=== PATIENT | male | born 1960 | race Caucasian/White ===

== ENCOUNTER → 2018-01-29 | Outpatient (CLI) | payer BC ==
[~2018-01-29] MED LIST: DIOVAN HCT 80-1 EACH PO; FENOFIBRATE145 MG PO; JANUVIA100 MG PO; NORCO 10-325 T1 EACH PO; RAPAFLO8 MG PO; ZETIA10 MG PO
--- NOTE | 2018-01-29 11:17 | Diagnostic Imaging Report ---
PROCEDURE:X-RAY ABDOMEN - KUB COMPARISON:Abdomen one view 07/24/2017. INDICATIONS:CALCULUS OF THE KIDNEY FINDINGS: There is a non-obstructed bowel-gas pattern. 3.6 mm calculus projects over the superior pole the right kidney. Two separate calculi project over the superior pole of the left kidney, the largest measuring 2.7 mm. There are no calcifications projected over the expected course of the ureters or bladder. Metallic objects project over the right midabdomen, correlate with surgical history. There are no acute osseous abnormalities. The lung bases are clear. CONCLUSION: Bilateral nephrolithiasis. Dictated by: Jose Cruz Rawls M.D. on 01/29/2018 at 11:17 Electronically approved by: Jose Cruz Rawls M.D. on 01/29/2018 at 11:17
== END | disposition home or self-care (01) ==
LOC: RAD 09:31
PROVIDERS: ATTEND Urology
DX: N20.0 Calculus of kidney (principal)
CPT/HCPCS: 74018

== ENCOUNTER → 2018-04-16 | Outpatient (CLI) | payer BC ==
--- NOTE | 2018-04-16 09:52 | Diagnostic Imaging Report ---
PROCEDURE:X-RAY ABDOMEN - KUB COMPARISON:Patients [facility], DX, ABDOMEN-1VIEW (KUB), 01/29/2018, 10:37. INDICATIONS:KIDNEY STONE FOLLOW UP FINDINGS: There are small stones overlying the upper pole of both kidneys appearing unchanged in size or position compared to the most recent plain film of the abdomen. There are no dilated loops of bowel to suggest obstruction. There are no masses. Barium or calcification within loops of bowel overlie the iliac crests bilaterally. Left pelvic phlebolith is stable. There is no evidence of free air. No acute osseous abnormalities are present. CONCLUSION: Small bilateral renal stones. Aureliano Vance D.O. Dictated by: Aureliano Vance D.O. on 04/16/2018 at 9:56 Electronically approved by: Aureliano Vance D.O. on 04/16/2018 at 9:56
== END ==
LOC: RAD 08:30
PROVIDERS: ATTEND Urology
DX: N20.0 Calculus of kidney (principal)
CPT/HCPCS: 74018

== ENCOUNTER → 2018-07-17 | Outpatient (CLI) | payer BC ==
--- NOTE | 2018-07-17 09:06 | Diagnostic Imaging Report ---
PROCEDURE:X-RAY ABDOMEN - KUB COMPARISON:Patients [facility], DX, ABDOMEN-1VIEW (KUB), 04/16/2018, 8:34. INDICATIONS:CALCULUS OF THE KIDNEY FINDINGS: No change in the size or location of previously described upper pole stones with a single one on the right side and two on the left side. Left pelvic calcifications compatible with phleboliths. There are no dilated loops of bowel to suggest obstruction. There are no masses. There is no evidence of free air. No acute osseous abnormalities are present. CONCLUSION: 1. No acute abdominal abnormality. 2. Small bilateral upper pole renal stones unchanged. Aureliano Vance D.O. Dictated by: Aureliano Vance D.O. on 07/17/2018 at 9:14 Electronically approved by: Aureliano Vance D.O. on 07/17/2018 at 9:14
== END ==
LOC: RAD 08:14
PROVIDERS: ATTEND Urology
DX: N20.0 Calculus of kidney (principal)
CPT/HCPCS: 74018

== ENCOUNTER → 2018-12-31 | Outpatient (CLI) | payer BC ==
--- NOTE | 2018-12-31 11:42 | Diagnostic Imaging Report ---
EXAM: ABDOMEN-1VIEW (KUB) DATE: 12/31/2018 9:25 AM INDICATION: Kidney stone COMPARISON: None FINDINGS: 2 supine views of the abdomen show a normal distribution of air in the small and large bowel. There is a 4 mm calcification projected on the upper portion of the right kidney and a 4 mm calcification projected on the upper portion of the left kidney. Overlying bowel may obscure other smaller calcifications. No abnormal calcification is seen along the expected path of either ureter or the urinary bladder. Pelvic calcifications are likely related to phleboliths and prostate. No acute bony abnormality. IMPRESSION: 1. A 4 mm calcification is projected on the upper portion of each kidney. These may represent small intrarenal calculi. 2. No bowel dilatation or evidence for bowel obstruction. Signed by: Dr. Lucian Guevara M.D. on 12/31/2018 11:38 AM
== END ==
LOC: RAD 09:12
PROVIDERS: ATTEND Urology
DX: N20.0 Calculus of kidney (principal)
CPT/HCPCS: 74018

== ENCOUNTER → 2019-04-22 | Outpatient (CLI) | payer BC ==
--- NOTE | 2019-04-22 11:41 | Diagnostic Imaging Report ---
EXAM: Renal Ultrasound INDICATION: Chronic kidney disease ^[id number] ^[id number] ^CHRONIC KIDNEY DISEASE COMPARISON: None TECHNIQUE: Transverse and longitudinal images of the kidneys and bladder were obtained. FINDINGS: Right Kidney: Length: 11.6 cm Appearance: Normal echogenicity. Collecting system: No hydronephrosis Stones: Small echogenic foci measuring up to 0.4 x 0.2 cm, possibly nonobstructing calculi. Cyst/Mass: 2.4 x 2.0 cm upper pole simple cyst, 1.6 x 1.4 cm mid pole simple cyst. Left Kidney: Length: 11.8 cm Appearance: Normal echogenicity. Collecting system: No hydronephrosis Stones: Echogenic focus measuring up to 5 mm at the mid pole with posterior shadowing, likely non-obstructing calculus Cyst/Mass: 1.7 x 1.2 cm mid pole simple cyst. Bladder: Measures 10.8 x 6.9 x 8.3 cm no wall thickening. No mass identified. Prostate: Measures 4.1 x 4.0 x 2.9 cm. IMPRESSION: No hydronephrosis. Bilateral small nonobstructing renal calculi measuring up to 4 mm on the right and 5 mm on the left. Bilateral simple renal cysts. Signed by: Marion Tobar MD on 04/22/2019 11:38 AM
== END ==
LOC: US 07:43
PROVIDERS: ATTEND Urology
DX: N18.9 Chronic kidney disease, unspecified (principal)
CPT/HCPCS: 76770

== ENCOUNTER → 2019-07-04 | Outpatient (CLI) | payer BC ==
--- NOTE | 2019-07-04 10:04 | Diagnostic Imaging Report ---
Exam: KUB - 2 views Indication: Renal calculi Comparison: KUB of 12/31/2018 Findings: No significant interval change in renal calculi of upper poles of both kidneys measuring up to 4 mm. An additional left upper pole calculus measures 2 mm. No new radiographically apparent renal calculi. Nonobstructive bowel gas pattern. No free air. Osseous structures appear unremarkable. Phleboliths in the pelvis. Impression: Unchanged bilateral upper pole renal calculi measuring up to 4 mm. No new radiographically apparent renal calculi. Signed by: Marion Tobar MD on 07/04/2019 10:01 AM
== END ==
LOC: RAD 09:22
PROVIDERS: ATTEND Urology
DX: N20.0 Calculus of kidney (principal)
CPT/HCPCS: 74018

== ENCOUNTER → 2020-01-06 | Outpatient (CLI) | payer BC ==
--- NOTE | 2020-01-06 10:17 | Diagnostic Imaging Report ---
Exam: KUB - 2 views Indication: Renal calculus Comparison: KUB of 07/04/2019 Findings: Unchanged 4 mm right upper pole renal calculus and 3 mm and 2 mm left upper pole renal calculi. No new radiographically apparent renal calculi. Nonobstructive bowel gas pattern. No free air. Phleboliths in the left pelvis. No acute osseous injury. Impression: Unchanged bilateral renal calculi. Signed by: Marion Tobar MD on 01/06/2020 10:15 AM
== END ==
LOC: RAD 09:22
PROVIDERS: ATTEND Urology
DX: N20.0 Calculus of kidney (principal)
CPT/HCPCS: 74018